=== PATIENT | female | born 1995 | race Caucasian/White ===

== ENCOUNTER 2017-05-15 00:47 | Emergency (ER) | payer OTHER ==
[~2017-05-15] VITALS: Ht 167.6 cm; Wt 54.5 kg
[~2017-05-15 00:47] MED LIST: ANTIVERT25 MG PO; AUGMENTIN875 MG PO; IBUPROFEN800 MG PO; PRENATAL TABLE1 EAC3 PO; REGLAN10 MG PO; TYLENOL REGULA325 MG PO
[2017-05-15 01:23] LABS: HEMOGLOBIN 12.7 G/DL (11.9-15.5); MCH 29.7 PG (29.0-34.0); MCHC 34.3 G/DL (30.0-36.0); MCV 86.7 FL (83-99); PLATELET COUNT 217 K/uL (156-360); RBC DIS.WIDTH-SD 40.8 % (39-53); RED BLOOD COUNT 4.27 M/uL (3.80-5.20)
[2017-05-15 01:35] LABS: ALBUMIN 4.1 g/dL (3.2-4.8); CHLORIDE 107 mEq/L (99-109); POTASSIUM 3.8 mEq/L (3.7-5.4); SODIUM 139 mEq/L (136-147)
[2017-05-15 01:37] LABS: GLUCOSE 87 mg/dL (70-99); TOTAL PROTEIN 7.4 g/dL (6.4-8.3)
[2017-05-15 01:39] LABS: TOTAL BILIRUBIN 0.3 mg/dL (0.0-1.0)
[2017-05-15 01:41] LABS: ALKALINE PHOSPHATASE 40 IU/L (3-129); CREATININE 0.7 mg/dL (0.6-1.3); GFR ESTIMATE (CALCULATED) > 59 mL/min/
[2017-05-15 01:42] LABS: UREA NITROGEN (BUN) 12 mg/dL (9-23)
[2017-05-15 01:43] LABS: AST (GOT) 18 IU/L (2-34)
[2017-05-15 01:43] LABS: APPEARANCE SL.HAZY ((CLEAR)); BILIRUBIN NEGATIVE; BLOOD NEGATIVE; COLOR YELLOW ((YELLOW)); GLUCOSE (STRIP) NEGATIVE; KETONES NEGATIVE; LEUKOCYTES NEGATIVE; NITRITE NEGATIVE; PROTEIN (STRIP) NEGATIVE; SPECIFIC GRAVITY 1.021 (1.000-1.030); UROBILINOGEN 0.2 MG/DL (0.2-1.0)
[2017-05-15 01:44] LABS: ALT (GPT) 16 IU/L (3-49)
[2017-05-15 03:07] LABS: BACTERIA RARE /HPF; EPITHELIAL CELLS RARE /HPF; MUCUS TRACE /LPF; RED BLOOD CELLS 0-5 /HPF (0-5); UCUL ADDED? NO; WHITE BLOOD CELLS 0-5 /HPF (0-5)
[2017-05-15 03:13] LABS: QUANTITATIVE HCG 83277.1 MIU/ML
[2017-05-15] MEDS ORDERED: REGLAN10 MG PO (04:30)
[2017-05-15 05:00] VITALS: BP 128/55
== END 2017-05-15 05:03 | disposition home or self-care (01) ==
LOC: EME 00:47
DX: O20.9 Hemorrhage in early pregnancy, unspecified (principal); Z3A.08 8 weeks gestation of pregnancy
CPT/HCPCS: 76801; 76856; 80053; 81003; 84702; 85027; 86900; 86901; 99281; 99285; J2765; J7030

== ENCOUNTER 2017-08-14 21:35 | Outpatient (CLI) | payer OTHER ==
[~2017-08-14] VITALS: Ht 167.6 cm; Wt 57.2 kg
[2017-08-14 21:55] VITALS: BP 96/60
[2017-08-14 22:34] LABS: APPEARANCE SL.HAZY ((CLEAR)); BILIRUBIN NEGATIVE; BLOOD NEGATIVE; COLOR YELLOW ((YELLOW)); GLUCOSE (STRIP) NEGATIVE; KETONES NEGATIVE; LEUKOCYTES TRACE; NITRITE NEGATIVE; PROTEIN (STRIP) 30; SPECIFIC GRAVITY 1.028 (1.000-1.030)
[2017-08-14 22:40] LABS: BACTERIA RARE /HPF; EPITHELIAL CELLS 1+ /HPF; MUCUS 4+ /LPF; RED BLOOD CELLS 0-5 /HPF (0-5); UCUL ADDED? YES
[2017-08-14 22:47] LABS: AMPHETAMINE NEGATIVE (500 ng/mL); BARBITURATES NEGATIVE (200 ng/mL); BENZODIAZEPINES NEGATIVE (150 ng/mL); BUPRENORPHINE NEGATIVE (10 ng/mL); COCAINE NEGATIVE (150 ng/mL); METHADONE NEGATIVE (200 ng/mL); METHAMPHETAMINE NEGATIVE (500 ng/mL); OPIATES (MORPHINE) NEGATIVE (100 ng/mL); OXYCODONE NEGATIVE (100 ng/mL); PHENCYCLIDINE NEGATIVE (25 ng/mL); PROPOXYPHENE NEGATIVE (300 ng/mL); THC CANNABINOIDS NEGATIVE (50 ng/mL); TRICYCLIC ANTIDEPRESSANTS NEGATIVE (300 ng/mL)
[2017-08-14 23:28] LABS: SOURCE URINE
[2017-08-15] MEDS ORDERED: GUMMIES CHILDR1 EACH PO (00:01)
[2017-08-15] MEDS ORDERED: ZOFRAN4 MG PO (00:03)
[2017-08-15 00:45] LABS: CANDIDA DNA PROBE NEGATIVE; GARDNERELLA DNA PROBE NEGATIVE; TRICHOMONAS DNA PROBE NEGATIVE
[2017-08-15 14:25] LABS: CHLAMYDIA TRACHOMATIS NEGATIVE; NEISSERIA GONORRHOEAE NEGATIVE
== END 2017-08-15 00:10 | disposition home or self-care (01) ==
LOC: LDRP-OP 21:35 → 2WEST 21:36 → LDRP-OP 01-30 16:00
PROVIDERS: Advanced Practice Midwife
DX: O26.892 Other specified pregnancy related conditions, second trimester (principal); Z3A.20 20 weeks gestation of pregnancy; O21.9 Vomiting of pregnancy, unspecified; R10.9 Unspecified abdominal pain; Q05.9 Spina bifida, unspecified
CPT/HCPCS: 81003; 87086; 87480; 87491; 87510; 87591; 87660; G0378